=== PATIENT | male | born 1960 | race Caucasian/White ===

== ENCOUNTER 2016-08-07 07:19 | Day surgery (SDC) | payer OTHER ==
[2016-07-28 14:43] VITALS: BMI 29.9
[2016-08-07] MEDS ORDERED: PROPOFOL 20 ML ONE ×2 (07:40)
[2016-08-07 08:38] VITALS: PULSE 62; TEMP 97.6
[2016-08-07 08:58] VITALS: BP 125/77
--- NOTE | 2016-08-10 15:21 | PATH ---
Surgical Pathology Report Patient Name: QUAN SANTOS [facility]. Rec. #: [id number] /Age/Gender: 1960 (Age: 56) / M Account: [id number] Location: [facility], [facility]-ENDOSCOPY Taken: 08/07/2016 Received: 08/07/2016 Reported: 08/10/2016 Physicians: Nasra Marley M.D. Specimen(s) Received A: BX ASCENDING POLYP B: BX RECTAL POLYP Clinical History Polyps Diverticulosis, polyps Final Diagnosis A. ASCENDING, POLYP, BIOPSY: TUBULAR ADENOMA. B. RECTUM, POLYP, BIOPSY: HYPERPLASTIC POLYP. Electronically Signed Alma Velasquez M.D. Gross Description A. Received in formalin, labeled "ascending polyp" are 2 small, irregular portions of soft tissue averaging 0.3 cm. in greatest dimension. The specimens are submitted in toto in one cassette. B. Received in formalin, labeled "rectal polyp" are 2 small, irregular portions of soft tissue measuring 0.2 and 0.3 cm. in greatest dimension. The specimens are submitted in toto in one cassette. 08/07/2016 [facility]08/07/2016
== END 2016-08-07 09:00 | disposition home or self-care (01) ==
LOC: FASU-ENDO 07:19
PROVIDERS: ATTEND Internal Medicine
PROC: 0DBP8ZX Excision of Rectum, Via Natural or Artificial Opening Endoscopic, Diagnostic (ICD-10-PCS; 2016-08-07)
PROC: 0DBK8ZX Excision of Ascending Colon, Via Natural or Artificial Opening Endoscopic, Diagnostic (ICD-10-PCS; principal; 2016-08-07 07:58)
DX: Z86.010 Personal history of colon polyps (principal); D12.2 Benign neoplasm of ascending colon; K62.1 Rectal polyp; K57.30 Diverticulosis of large intestine without perforation or abscess without bleeding
CPT/HCPCS: 88305-TC